=== PATIENT | male | born 1955 | race Hispanic/Latino ===

== ENCOUNTER 2018-01-09 13:43 | Inpatient (IN) | payer OTHER ==
[~2018-01-09] VITALS: Ht 157.5 cm; Wt 75.5 kg
[2018-01-09] MEDS ORDERED: ONDANSETRON HCL INJ 2 MG/ML VIAL IV STA (14:03)
[2018-01-09] MEDS ORDERED: PANTOPRAZOLE 40 MG 10ML VIAL IV STA (14:03)
[2018-01-09] MEDS ORDERED: ACETAMINOPHEN 1000 MG/100 ML IV STA (14:04)
[2018-01-09] MEDS ORDERED: SODIUM CHLORIDE 0.9% 1000ML 1,000 ML IV ONE (14:15)
[2018-01-09 14:17] LABS: BASOPHILS % 0.2 % (0.0-1.0); EOSINOPHILS # (AUTO) 0.1 (0.0-0.4); EOSINOPHILS % 1.2 % (0.0-6.0); HEMATOCRIT 42.2 % (38.2-49.6); HEMOGLOBIN 13.9 g/dL (14.0-18.0); LYMPHOCYTES # (AUTO) 0.5 (1.0-3.2); LYMPHOCYTES % 10.7 % (18.0-39.1); MEAN CORPUSCULAR HEMOGLOBIN 27.3 pg (28-32); MEAN CORPUSCULAR HGB CONC 32.9 g/dL (31-35); MEAN CORPUSCULAR VOLUME 82.7 fL (81-99); MONOCYTES % 0.2 % (4.4-11.3); NEUTROPHILS # (AUTO) 3.8 (2.1-6.9); NEUTROPHILS % 87.5 % (38.7-80.0); PLATELET COUNT 175 x10e3/uL (140-360); RED CELL DISTRIBUTION WIDTH 12.6 % (11.7-14.4)
[2018-01-09 14:24] LABS: INR 1.07; PROTHROMBIN TIME 13.1 seconds (11.9-14.5)
[2018-01-09 14:25] LABS: PARTIAL THROMBOPLASTIN TIME 26.8 seconds (23.8-35.5)
[2018-01-09 14:35] LABS: ALANINE AMINOTRANSFERASE 16 IU/L (0-55); ALBUMIN 4.1 g/dL (3.5-5.0); ALBUMIN/GLOBULIN RATIO 1.1 (0.8-2.0); ALKALINE PHOSPHATASE 77 IU/L (40-150); ANION GAP 15.9 mmol/L (8-16); BLOOD UREA NITROGEN 20 mg/dL (7-26); BUN/CREATININE RATIO 18 (6-25); CALCIUM 9.6 mg/dL (8.4-10.2); CARBON DIOXIDE 24 mmol/L (22-29); CHLORIDE 101 mmol/L (98-107); CREATINE KINASE 92 IU/L (30-200); CREATININE, SERUM 1.09 mg/dL (0.72-1.25); EST GLOMERULAR FILTRATION RATE > 60 ML/MIN (60-); GLUCOSE 279 mg/dL (74-118); MAGNESIUM 1.3 MG/DL (1.3-2.1); POTASSIUM 3.9 mmol/L (3.5-5.1); SODIUM 137 mmol/L (136-145)
[2018-01-09 15:00] LABS: CLARITY,URINE SL CLOUDY (CLEAR)
[2018-01-09 15:01] LABS: BILIRUBIN,URINE NEGATIVE (NEGATIVE); COLOR,URINE STRAW (YELLOW); KETONES,URINE NEGATIVE (NEGATIVE); LEUKOCYTE ESTERASE ,URINE TRACE (NEGATIVE); NITRITE,URINE POSITIVE (NEGATIVE); PROTEIN,URINE DIPSTICK 2+ (NEGATIVE); URINE UROBILINOGEN 0.2 mg/dL (0.2 - 1)
[2018-01-09] MEDS ORDERED: IBUPROFEN 600 MG TAB PO STA (15:06)
[2018-01-09] MEDS ORDERED: SODIUM CHLORIDE 0.9% 1000ML 1,000 ML IV STA (15:06)
[2018-01-09] MEDS ORDERED: MEROPENEM 1GRAM 1 GM in SODIUM CHLORIDE 0.9% 100 ML 100 ML IV SCH (15:15)
[2018-01-09 15:24] LABS: BACTERIA,URINE MANY /HPF; RBC,URINE >50 /HPF (0-5)
[2018-01-09] MEDS ORDERED: ONDANSETRON HCL INJ 2 MG/ML VIAL IV PRN (15:30)
[2018-01-09] MEDS ORDERED: DEXTROSE 50% SYRINGE 50 ML IV PRN (15:30)
[2018-01-09] MEDS ORDERED: MORPHINE SULFATE 2 MG/ML SYR IV PRN (15:30)
[2018-01-09] MEDS: MEROPENEM 1 GM VIAL IV SCH ×2 (15:32→22:12)
[2018-01-09] MEDS: INSULIN REGULAR, HUMAN 100 UNIT/1 ML 3ML VIAL SQ SCH ×2 (16:30→21:00)
[2018-01-09] MEDS ORDERED: ASPIR 8181 MG PO (17:06)
[2018-01-09] MEDS ORDERED: CLOPIDOGREL75 MG PO (17:09)
[2018-01-09] MEDS: SODIUM CHLORIDE 0.9% 1000ML 1,000 ML IV SCH (17:15)
--- NOTE | 2018-01-09 17:19 | Diagnostic Imaging Report ---
EXAMINATION: CHEST SINGLE (PORTABLE) INDICATION: \S\FEVER \S\[id number] \S\1630 COMPARISON: None FINDINGS: AP view TUBES and LINES: None. LUNGS: Low lung volumes. Patchy airspace opacities in both lung bases. No pulmonary edema. PLEURA: No pleural effusion or pneumothorax. HEART AND MEDIASTINUM: The cardiomediastinal silhouette is unremarkable.. BONES AND SOFT TISSUES: No acute osseous lesion. Soft tissues are unremarkable. UPPER ABDOMEN: No free air under the diaphragm. IMPRESSION: Bibasilar patchy airspace opacities may relate to atypical infection in this patient with fever. Recommend follow-up chest radiograph in 4-6 weeks. Signed by: Dr. Alexia Barlow M.D. on 01/09/2018 5:15 PM
[2018-01-09 17:55] VITALS: BP 103/62
[2018-01-09 18:01] LABS: EOSINOPHILS % (MANUAL) 1 % (0-7); LYMPHOCYTES % (MANUAL) 14 % (19-48); METAMYELOCYTES % (MANUAL) 2 % (0-0); NEUTROPHILS % (MANUAL) 83 % (40-74); PLATELET ESTIMATE ADEQUATE; PLATELET MORPHOLOGY COMMENT NORMAL; RBC MORPHOLOGY COMMENT NORMAL
[2018-01-09] MEDS ORDERED: GABAPENTIN300 MG PO (18:18)
[2018-01-09] MEDS ORDERED: CIPRO500 MG PO (18:18)
[2018-01-09] MEDS ORDERED: ULTRAM 50MG50 MG PO (18:18)
[2018-01-09] MEDS ORDERED: TAMSULOSIN HCL0.4 MG PO (18:18)
[2018-01-09] MEDS ORDERED: GEMFIBROZIL600 MG PO (18:18)
[2018-01-09] MEDS ORDERED: METFORMIN HCL500 MG PO (18:18)
[2018-01-09] MEDS ORDERED: GLIPIZIDE5 MG PO (18:18)
[2018-01-09] MEDS ORDERED: LEVAQUIN500 MG PO (18:18)
[2018-01-09] MEDS ORDERED: ATENOLOL50 MG PO (18:18)
[2018-01-09 19:30] VITALS: BP 118/56
[2018-01-09 20:00] VITALS: BP 118/56
[2018-01-10] VITALS: BP 122/59
[2018-01-10 00:30] LABS: CREATINE KINASE MB 1.4 ng/mL (0-5.0)
[2018-01-10] MEDS: SODIUM CHLORIDE 0.9% 1000ML 1,000 ML IV SCH ×3 (02:55→13:21)
[2018-01-10 04:45] LABS: BASOPHILS % 0.2 % (0.0-1.0); EOSINOPHILS % 0.2 % (0.0-6.0); HEMATOCRIT 35.7 % (38.2-49.6); HEMOGLOBIN 11.8 g/dL (14.0-18.0); LYMPHOCYTES # (AUTO) 0.4 (1.0-3.2); LYMPHOCYTES % 2.5 % (18.0-39.1); MEAN CORPUSCULAR HEMOGLOBIN 27.3 pg (28-32); MEAN CORPUSCULAR HGB CONC 33.1 g/dL (31-35); MEAN CORPUSCULAR VOLUME 82.4 fL (81-99); MONOCYTES # (AUTO) 0.6 (0.2-0.8); MONOCYTES % 3.9 % (4.4-11.3); NEUTROPHILS # (AUTO) 13.5 (2.1-6.9); NEUTROPHILS % 92.7 % (38.7-80.0); PLATELET COUNT 163 x10e3/uL (140-360); RED BLOOD COUNT 4.33 x10e6/uL (4.3-5.7); RED CELL DISTRIBUTION WIDTH 13.1 % (11.7-14.4)
[2018-01-10 05:15] LABS: CREATINE KINASE MB 1.7 ng/mL (0-5.0)
[2018-01-10 05:30] LABS: ALANINE AMINOTRANSFERASE 15 IU/L (0-55); ALBUMIN 3.1 g/dL (3.5-5.0); ALBUMIN/GLOBULIN RATIO 1.1 (0.8-2.0); ALKALINE PHOSPHATASE 45 IU/L (40-150); ANION GAP 14.1 mmol/L (8-16); BLOOD UREA NITROGEN 14 mg/dL (7-26); BUN/CREATININE RATIO 16 (6-25); CALCIUM 8.2 mg/dL (8.4-10.2); CARBON DIOXIDE 21 mmol/L (22-29); CHLORIDE 106 mmol/L (98-107); EST GLOMERULAR FILTRATION RATE > 60 ML/MIN (60-); GLUCOSE 181 mg/dL (74-118); POTASSIUM 4.1 mmol/L (3.5-5.1); SODIUM 137 mmol/L (136-145)
[2018-01-10] MEDS: MEROPENEM 1 GM VIAL IV SCH ×3 (06:02→22:10)
[2018-01-10 06:48] LABS: BAND NEUTROPHILS % (MANUAL) 19 %; LYMPHOCYTES % (MANUAL) 1 % (19-48); MONOCYTES % (MANUAL) 6 % (3.4-9.0); NEUTROPHILS % (MANUAL) 74 % (40-74); PLATELET ESTIMATE ADEQUATE; PLATELET MORPHOLOGY COMMENT NORMAL; RBC MORPHOLOGY COMMENT NORMAL
[2018-01-10 08:00] VITALS: BP 137/64
[2018-01-10] MEDS: INSULIN REGULAR, HUMAN 100 UNIT/1 ML 3ML VIAL SQ SCH ×4 (09:25→21:42)
[2018-01-10] MEDS ORDERED: ACETAMINOPHEN 325 MG TAB PO PRN (10:00)
[2018-01-10] MEDS ORDERED: TRAMADOL HCL 50 MG TAB PO PRN (10:00)
[2018-01-10] MEDS ORDERED: HYDRALAZINE HCL 25 MG TAB PO PRN (10:00)
[2018-01-10 12:00] VITALS: BP 129/67
--- NOTE | 2018-01-10 14:24 | Diagnostic Imaging Report ---
EXAM: CT Chest, Abdomen and Pelvis WITH contrast INDICATION: History of prostate biopsy. Fever. COMPARISON: None. TECHNIQUE: Chest, abdomen and pelvis were scanned utilizing a multidetector helical scanner from the lung apex to the pubic symphysis after administration of IV contrast. Coronal and sagittal reformations were obtained. Routine protocol was performed. Scan was performed when during portal venous phase. IV CONTRAST: 100 mL of Isovue 370 ORAL CONTRAST: Water COMPLICATIONS: None RADIATION DOSE: Total DLP: 883.56 mGy*cm Estimated effective dose: (DLP x 0.015 x size factor) mSv CTDIvol has been reviewed. It is below the limits set by the Radiation Protocol Committee (RPC). FINDINGS: LINES and TUBES: None. LUNGS AND AIRWAYS: * 4.4 mm nodule in the left upper lobe (series 4, image 25). * 3.6 mm nodule in the left upper lobe (series 4 image 32). * 4.8 mm nodule in the right middle lobe (series 4, image 66) * Calcified granuloma in the right upper lobe. There is bibasilar atelectasis. Airways are normal. PLEURA: The pleural spaces are clear. HEART AND MEDIASTINUM: The thyroid gland is normal. No mediastinal, hilar or axillary lymphadenopathy. The heart is normal in size. There is no pericardial effusion. There are significant atherosclerotic calcifications in the coronary arteries. HEPATOBILIARY: The liver is diffuse hypodense compared to the spleen, consistent with diffuse hepatic diffuse hepatic steatosis. No focal hepatic lesions. No biliary ductal dilation. GALLBLADDER: No radio-opaque stones or sludge. No wall thickening. SPLEEN: No splenomegaly. PANCREAS: No focal masses or ductal dilatation. ADRENALS: No adrenal nodules KIDNEYS/URETERS: Kidneys enhance symmetrically. No hydronephrosis. No cystic or solid mass lesions. No stones. GI TRACT: No abnormal distention, wall thickening, or evidence of bowel obstruction. Appendix is normal. PELVIC ORGANS/BLADDER: Prostate measures 5.6 cm in transverse dimension. Mild surrounding inflammatory changes related to recent biopsy. Mild presacral edema related to the inflammatory changes surrounding the prostate. LYMPH NODES: No lymphadenopathy. VESSELS: Unremarkable. PERITONEUM / RETROPERITONEUM: No free air or fluid. BONES: Unremarkable. SOFT TISSUES: Unremarkable. IMPRESSION: 1. Mild prostate enlargement with surrounding inflammatory changes related to recent prostate biopsy. Superimposed infection cannot be excluded. There is additional presacral edema, likely related to the prostate biopsy. 2. Diffuse hepatic steatosis. 3. Several nonspecific small pulmonary nodules. 4. Dependent atelectasis. Signed by: Dr. Deuce Edward M.D. on 01/10/2018 2:20 PM
[2018-01-10 16:00] VITALS: BP 139/78
[2018-01-10] MEDS: ATENOLOL 50 MG TAB PO SCH (17:23)
[2018-01-10] MEDS: GEMFIBROZIL 600 MG TAB PO SCH (17:23)
[2018-01-10] MEDS ORDERED: IOPAMIDOL 370 MG/ML 200 ML INFUS..BTL INJ ONE (18:05)
[2018-01-10] MEDS ORDERED: SODIUM CHLORIDE 0.9% 50ML 50 ML ONE (18:05)
[2018-01-10 20:00] VITALS: BP 120/67
[2018-01-10] MEDS: TAMSULOSIN HCL 0.4 MG CAP PO SCH (21:41)
[2018-01-11] VITALS (7 sets, daily range): BP systolic 114–168; BP diastolic 59–81
[2018-01-11] MEDS: MEROPENEM 1 GM VIAL IV SCH (06:05)
[2018-01-11 06:26] LABS: BASOPHILS % 0.3 % (0.0-1.0); EOSINOPHILS # (AUTO) 0.1 (0.0-0.4); HEMATOCRIT 36.7 % (38.2-49.6); LYMPHOCYTES # (AUTO) 0.6 (1.0-3.2); LYMPHOCYTES % 9.1 % (18.0-39.1); MEAN CORPUSCULAR HGB CONC 32.7 g/dL (31-35); MEAN CORPUSCULAR VOLUME 82.7 fL (81-99); MONOCYTES # (AUTO) 0.5 (0.2-0.8); MONOCYTES % 7.4 % (4.4-11.3); NEUTROPHILS # (AUTO) 5.8 (2.1-6.9); NEUTROPHILS % 81.6 % (38.7-80.0); PLATELET COUNT 143 x10e3/uL (140-360); RED BLOOD COUNT 4.44 x10e6/uL (4.3-5.7); RED CELL DISTRIBUTION WIDTH 13.2 % (11.7-14.4)
[2018-01-11 06:42] LABS: ANION GAP 11.5 mmol/L (8-16); BLOOD UREA NITROGEN 11 mg/dL (7-26); BUN/CREATININE RATIO 13 (6-25); CALCIUM 8.9 mg/dL (8.4-10.2); CARBON DIOXIDE 21 mmol/L (22-29); CHLORIDE 105 mmol/L (98-107); CREATININE, SERUM 0.84 mg/dL (0.72-1.25); EST GLOMERULAR FILTRATION RATE > 60 ML/MIN (60-); GLUCOSE 178 mg/dL (74-118); POTASSIUM 3.5 mmol/L (3.5-5.1); SODIUM 134 mmol/L (136-145)
[2018-01-11] MEDS: INSULIN REGULAR, HUMAN 100 UNIT/1 ML 3ML VIAL SQ SCH ×4 (07:50→21:30)
[2018-01-11] MEDS: GLIPIZIDE 5 MG TAB PO SCH (08:39)
[2018-01-11] MEDS: GEMFIBROZIL 600 MG TAB PO SCH ×2 (08:40→16:22)
[2018-01-11] MEDS: ATENOLOL 50 MG TAB PO SCH ×2 (08:40→17:30)
[2018-01-11] MEDS: GABAPENTIN 300 MG CAP PO SCH (08:40)
[2018-01-11] MEDS ORDERED: TAMSULOSIN HCL 0.4 MG CAP PO SCH (09:00)
[2018-01-11] MEDS ORDERED: ASPIRIN 81 MG CHEW TAB PO SCH (09:00)
[2018-01-11] MEDS ORDERED: CLOPIDOGREL BISULFATE 75 MG TAB PO SCH (09:00)
--- NOTE | 2018-01-11 09:55 | Diagnostic Imaging Report ---
EXAMINATION: CHEST XRAY LINE PLACEMENT COMPARISON: CT chest 01/10/2018, chest x-ray 01/09/2018 INDICATION: PICC line placement DISCUSSION: Frontal view of the chest obtained at 0913 hours. HEART AND MEDIASTINUM: The cardiomediastinal silhouette is unremarkable. LINES: Right PICC line terminates in the SVC. LUNGS: The lungs are better inflated with improved bibasilar atelectasis. No pneumonia or pulmonary edema. PLEURA: No pleural effusion or pneumothorax. BONES AND SOFT TISSUES: No focal osseous lesion. The soft tissues are normal. IMPRESSION: Right PICC line terminates in the SVC without pneumothorax. No new cardiopulmonary findings. Signed by: Dr. Michael Lovett MD on 01/11/2018 9:52 AM
[2018-01-11 10:03] LABS: BAND NEUTROPHILS % (MANUAL) 23 %; LYMPHOCYTES % (MANUAL) 13 % (19-48); MONOCYTES % (MANUAL) 4 % (3.4-9.0); NEUTROPHILS % (MANUAL) 60 % (40-74); PLATELET ESTIMATE ADEQUATE; PLATELET MORPHOLOGY COMMENT NORMAL; RBC MORPHOLOGY COMMENT NORMAL
[2018-01-11] MEDS: SODIUM CHLORIDE 0.9% 1000ML 1,000 ML IV SCH (11:20)
[2018-01-11] MEDS: PIPER-TAZ 3.375 GM 50 ML IV SCH ×2 (14:16→21:31)
--- NOTE | 2018-01-11 17:32 | Consultation ---
DATE OF CONSULTATION: REASON FOR CONSULTATION: UTI with multidrug resistant. HISTORY OF PRESENT ILLNESS: This patient, who is a 62-year-old male, comes into the hospital with fever and chills, urgency, and frequency. The patient was admitted. His urine culture is showing E. coli, blood culture is showing E. coli, it was confirmed as ESBL, sensitive only to Invanz and meropenem. Patient is currently lying in bed. The plan is for him to be discharged home soon. Infectious disease was asked to see to help with IV antibiotic. Patient is currently lying in bed, has no complaints. REVIEW OF SYSTEMS HEENT: Negative. PULMONARY: Negative. CARDIAC: Negative. PHYSICAL EXAMINATION GENERAL: He is alert and oriented, does not seem to be in acute distress. VITAL SIGNS: Stable, currently afebrile. HEENT: Does not appear icteric. NECK: Supple. CHEST: Clear. HEART: S1 and S2. No S3, S4, or murmur. ABDOMEN: Soft. Positive bowel sounds. No tenderness. EXTREMITIES: No edema. IMPRESSION: Sepsis, present on admission, Escherichia coli multidrug-resistant. Agree with 14 days of meropenem or Invanz. PICC line has already been inserted. We will see if I can do IV antibiotic at the house. I am going to have my office work on it. In the meantime, PICC line has been inserted. Discussed with the family. We will follow with you. Job#: [id number] BRYAN
[2018-01-11] MEDS: TAMSULOSIN HCL 0.4 MG CAP PO SCH (21:30)
[2018-01-12] VITALS (8 sets, daily range): BP systolic 135–170; BP diastolic 68–89
[2018-01-12] MEDS: PIPER-TAZ 3.375 GM 50 ML IV SCH (06:00)
[2018-01-12 06:03] LABS: BASOPHILS % 0.2 % (0.0-1.0); EOSINOPHILS # (AUTO) 0.1 (0.0-0.4); EOSINOPHILS % 2.6 % (0.0-6.0); HEMATOCRIT 35.8 % (38.2-49.6); HEMOGLOBIN 11.8 g/dL (14.0-18.0); LYMPHOCYTES # (AUTO) 0.9 (1.0-3.2); LYMPHOCYTES % 19.8 % (18.0-39.1); MEAN CORPUSCULAR HEMOGLOBIN 27.3 pg (28-32); MEAN CORPUSCULAR VOLUME 82.7 fL (81-99); MONOCYTES # (AUTO) 0.4 (0.2-0.8); MONOCYTES % 9.8 % (4.4-11.3); NEUTROPHILS # (AUTO) 2.9 (2.1-6.9); NEUTROPHILS % 67.1 % (38.7-80.0); PLATELET COUNT 157 x10e3/uL (140-360); RED BLOOD COUNT 4.33 x10e6/uL (4.3-5.7)
[2018-01-12 06:08] LABS: ANION GAP 12.6 mmol/L (8-16); BLOOD UREA NITROGEN 11 mg/dL (7-26); BUN/CREATININE RATIO 14 (6-25); CARBON DIOXIDE 22 mmol/L (22-29); CHLORIDE 109 mmol/L (98-107); CREATININE, SERUM 0.79 mg/dL (0.72-1.25); EST GLOMERULAR FILTRATION RATE > 60 ML/MIN (60-); GLUCOSE 131 mg/dL (74-118); POTASSIUM 3.6 mmol/L (3.5-5.1); SODIUM 140 mmol/L (136-145)
[2018-01-12] MEDS: SODIUM CHLORIDE 0.9% 1000ML 1,000 ML IV SCH (07:16)
[2018-01-12 07:55] LABS: BAND NEUTROPHILS % (MANUAL) 4 %; EOSINOPHILS % (MANUAL) 2 % (0-7); LYMPHOCYTES % (MANUAL) 25 % (19-48); MONOCYTES % (MANUAL) 7 % (3.4-9.0); NEUTROPHILS % (MANUAL) 62 % (40-74)
[2018-01-12 07:57] LABS: HYPOCHROMASIA SLIGHT
[2018-01-12 07:58] LABS: ANISOCYTOSIS SLIGHT; PLATELET ESTIMATE ADEQUATE; PLATELET MORPHOLOGY COMMENT NORMAL; RBC MORPHOLOGY COMMENT NORMAL
[2018-01-12] MEDS: GLIPIZIDE 5 MG TAB PO SCH (08:23)
[2018-01-12] MEDS: GEMFIBROZIL 600 MG TAB PO SCH ×2 (08:23→17:00)
[2018-01-12] MEDS: GABAPENTIN 300 MG CAP PO SCH (08:23)
[2018-01-12] MEDS: ATENOLOL 50 MG TAB PO SCH ×2 (08:24→17:00)
[2018-01-12] MEDS: INSULIN REGULAR, HUMAN 100 UNIT/1 ML 3ML VIAL SQ SCH ×3 (08:25→16:58)
[2018-01-12] MEDS ORDERED: MORPHINE SULFATE INJ 4 MG/ML INJ IV PRN (13:00)
[2018-01-12] MEDS ORDERED: MEROPENEM 500MG 500 MG in SODIUM CHLORIDE 0.9% 50ML 50 ML IV SCH (14:00)
[2018-01-12] MEDS ORDERED: MEROPENEM 500 MG VIAL IV SCH (14:00)
== END 2018-01-12 22:42 | disposition home or self-care (01) | DRG 872 ==
LOC: ER 13:43 → ERHOLD 15:33 → MED/SURG3 17:11
PROVIDERS: ADMIT Internal Medicine; ATTEND Internal Medicine
PROC: 02HV33Z Insertion of Infusion Device into Superior Vena Cava, Percutaneous Approach (ICD-10-PCS; principal; 2018-01-11)
DX: A41.51 Sepsis due to Escherichia coli [E. coli] (principal); N30.01 Acute cystitis with hematuria; E87.1 Hypo-osmolality and hyponatremia; Z16.12 Extended spectrum beta lactamase (ESBL) resistance; I10 Essential (primary) hypertension; E11.9 Type 2 diabetes mellitus without complications; N40.0 Benign prostatic hyperplasia without lower urinary tract symptoms; Z83.3 Family history of diabetes mellitus; Z82.49 Family history of ischemic heart disease and other diseases of the circulatory system; I25.10 Atherosclerotic heart disease of native coronary artery without angina pectoris; E78.5 Hyperlipidemia, unspecified; M79.1 Myalgia; N41.9 Inflammatory disease of prostate, unspecified; D64.9 Anemia, unspecified; E87.5 Hyperkalemia
CPT/HCPCS: 36415; 36569; 71045; 71260; 74177; 80048; 80053; 81001; 82550; 82553; 82948; 83605; 83735; 84484; 85025; 85610; 85730; 87040; 87071; 87086; 87186; 87205; 96361; 96372; 96376; 99284; J2185; J2270; J2405; J2543; J7030; Q9967

== ENCOUNTER 2018-03-11 05:34 | Inpatient (IN) | payer OTHER ==
[2018-03-09 17:35] LABS: BASOPHILS # (AUTO) 0.1 (0.0-0.1); BASOPHILS % 0.8 % (0.0-1.0); EOSINOPHILS # (AUTO) 0.3 (0.0-0.4); EOSINOPHILS % 5.1 % (0.0-6.0); HEMATOCRIT 37.2 % (38.2-49.6); HEMOGLOBIN 12.3 g/dL (14.0-18.0); LYMPHOCYTES # (AUTO) 1.3 (1.0-3.2); LYMPHOCYTES % 20.3 % (18.0-39.1); MEAN CORPUSCULAR HGB CONC 33.1 g/dL (31-35); MEAN CORPUSCULAR VOLUME 81.6 fL (81-99); MONOCYTES # (AUTO) 0.6 (0.2-0.8); NEUTROPHILS % 63.6 % (38.7-80.0); PLATELET COUNT 186 x10e3/uL (140-360); RED BLOOD COUNT 4.56 x10e6/uL (4.3-5.7); RED CELL DISTRIBUTION WIDTH 13.6 % (11.7-14.4)
[2018-03-09 17:48] LABS: ANION GAP 17.5 mmol/L (8-16); BLOOD UREA NITROGEN 18 mg/dL (7-26); BUN/CREATININE RATIO 18 (6-25); CALCIUM 8.9 mg/dL (8.4-10.2); CARBON DIOXIDE 22 mmol/L (22-29); CHLORIDE 103 mmol/L (98-107); CREATININE, SERUM 1.02 mg/dL (0.72-1.25); EST GLOMERULAR FILTRATION RATE > 60 ML/MIN (60-); GLUCOSE 399 mg/dL (74-118); POTASSIUM 4.5 mmol/L (3.5-5.1); SODIUM 138 mmol/L (136-145)
[~2018-03-11] VITALS: Ht 157.5 cm; Wt 77.6 kg
[~2018-03-11 05:34] MED LIST: ASPIR 8181 MG PO; ATENOLOL50 MG PO; CIPRO500 MG PO; CLOPIDOGREL75 MG PO; FINASTERIDE5 MG PO; GABAPENTIN300 MG PO; GEMFIBROZIL600 MG PO; GLIPIZIDE5 MG PO; LEVAQUIN500 MG PO; MEROPENEM1 GM IV; METFORMIN HCL500 MG PO; TAMSULOSIN HCL0.4 MG PO; TRADJENTA5 MG PO; ULTRAM 50MG50 MG PO
--- OUTSIDE RECORDS SUMMARY | 2018-03-11 05:37 | XMS REPORT ---
Author Author [facility] Address Unknown Phone Unavailable Care Team Providers Care Nip Wrapper Name Role Phone DIANA KIRBY Unavailable Unavailable Problems This patient has no known problems. Allergies, Adverse Reactions, Alerts This patient has no known allergies or adverse reactions. Medications This patient has no known medications. Results Test Description Test Time Test Comments Text Results Atomic Results Result Comments CHEST XRAY LINE PLACEMENT 2018-01-11 09:50:00 [place] [address] Patient Name: ANTONIO VALDERRAMA MR #: [id number] : 1955 Age/Sex: 62/M Req #: [id number] Adm Physician: DIANA KIRBY MD Ordered by: CINDY STANLEY MD Report #: [id number] Location: [facility] Room/Bed: [facility] Procedure: [id number] DX/CHEST XRAY LINE PLACEMENT Exam Date: 01/11/18 Exam Time: 0845 REPORT STATUS: Signed EXAMINATION: CHEST XRAY LINE PLACEMENT COMPARISON: CT chest 01/10/2018, chest x-ray 01/09/2018 INDICATION: PICC line placement DISCUSSION: Frontal view of the chest obtained at 0913 hours. HEART AND MEDIASTINUM: The cardiomediastinal silhouette is unremarkable. LINES: Right PICC line terminates in the SVC. LUNGS: The lungs are better inflated with improved bibasilar atelectasis. No pneumonia or pulmonary edema. PLEURA: No pleural effusion or pneumothorax. BONES AND SOFT TISSUES: No focal osseous lesion. The soft tissues are normal. IMPRESSION: Right PICC line terminates in the SVC without pneumothorax. No new cardiopulmonary findings. Signed by: Dr. Jeanne Lovett MD on 01/11/2018 9:52 AM Dictated By: JEANNE LOVETT MD 1 Transcribed By: LORENZO on 01/11/18951 COPY TO: CINDY STANLEY MD CT CHEST W 2018-01-10 14:01:00 [place] [address] Patient Name: ANTONIO VALDERRAMA MR #: [id number] : 1955 Age/Sex: 62/M Req #: [id number] Adm Physician: DIANA KIRBY MD Ordered by: DIANA KIRBY MD Report #: [id number] Location: [facility] Room/Bed: [facility] Procedure: [id number] CT/CT CHEST W Exam Date: 01/10/18 Exam Time: 1310 REPORT STATUS: Signed EXAM: CT Chest, Abdomen and Pelvis WITH contrast INDICATION: History of prostate biopsy. Fever. COMPARISON: None. TECHNIQUE: Chest, abdomen and pelvis were scanned utilizing a multidetector helical scanner from the lung apex to the pubic symphysis after administration of IV contrast. Coronal and sagittal reformations were obtained. Routine protocol was performed. Scan was performed when during portal venous phase. IV CONTRAST: 100 mL of Isovue 370 ORAL CONTRAST: Water COMPLICATIONS: None RADIATION DOSE: Total DLP: 883.56 mGy*cm Estimated effective dose: (DLP x 0.015 x size factor) mSv CTDIvol has been reviewed. It is below the limits set by the Radiation Protocol Committee (RPC). FINDINGS: LINES and TUBES: None. LUNGS AND AIRWAYS: * 4.4 mm nodule in the left upper lobe (series 4, image 25). * 3.6 mm nodule in the left upper lobe (series 4 image 32). * 4.8 mm nodule in the right middle lobe (series 4, image 66) * Calcified granuloma in the right upper lobe. There is bibasilar atelectasis. Airways are normal. PLEURA: The pleural spaces are clear. HEART AND MEDIASTINUM: The thyroid gland is normal. No mediastinal, hilar or axillary lymphadenopathy. The heart is normal in size. There is no pericardial effusion. There are significant atherosclerotic calcifications in the coronary arteries. HEPATOBILIARY: The liver is diffuse hypodense compared to the spleen, consistent with diffuse hepatic diffuse hepatic steatosis. No focal hepatic lesions. No biliary ductal dilation. GALLBLADDER: No radio-opaque stones or sludge. No wall thickening. SPLEEN: No splenomegaly. PANCREAS: No focal masses or ductal dilatation. ADRENALS: No adrenal nodules KIDNEYS/URETERS: Kidneys enhance symmetrically. No hydronephrosis. No cystic or solid mass lesions. No stones. GI TRACT: No abnormal distention, wall thickening, or evidence of bowel obstruction. Appendix is normal. PELVIC ORGANS/BLADDER: Prostate measures 5.6 cm in transverse dimension. Mild surrounding inflammatory changes related to recent biopsy. Mild presacral edema related to the inflammatory changes surrounding the prostate. LYMPH NODES: No lymphadenopathy. VESSELS: Unremarkable. PERITONEUM / RETROPERITONEUM: No free air or fluid. BONES: Unremarkable. SOFT TISSUES: Unremarkable. IMPRESSION: 1. Mild prostate enlargement with surrounding inflammatory changes related to recent prostate biopsy. Superimposed infection cannot be excluded. There is additional presacral edema, likely related to the prostate biopsy. 2. Diffuse hepatic steatosis. 3. Several nonspecific small pulmonary nodules. 4. Dependent atelectasis. Signed by: Dr. Dennise Heaton M.D. on 01/10/2018 2:20 PM Dictated By: DENNISE HEATON MD 1423 Transcribed By: LORENZO on 01/10/18 1421 COPY TO: DIANA KIRBY MD CT ABDOMEN/PELVIS W 2018-01-10 14:01:00 [facility] [place] [address] Patient Name: ANTONIO VALDERRAMA MR #: [id number] : 1955 Age/Sex: 62/M Req #: [id number] Adm Physician: DIANA KIRBY MD Ordered by: DIANA KIRBY MD Report #: [id number] Location: [facility] Room/Bed: [facility] Procedure: [id number] CT/CT ABDOMEN/PELVIS W Exam Date: 01/10/18 Exam Time: 1310 REPORT STATUS: Signed EXAM: CT Chest, Abdomen and Pelvis WITH contrast INDICATION: History of prostate biopsy. Fever. COMPARISON: None. TECHNIQUE: Chest, abdomen and pelvis were scanned utilizing a multidetector helical scanner from the lung apex to the pubic symphysis after administration of IV contrast. Coronal and sagittal reformations were obtained. Routine protocol was performed. Scan was performed when during portal venous phase. IV CONTRAST: 100 mL of Isovue 370 ORAL CONTRAST: Water COMPLICATIONS: None RADIATION DOSE: Total DLP: 883.56 mGy*cm Estimated effective dose: (DLP x 0.015 x size factor) mSv CTDIvol has been reviewed. It is below the limits set by the Radiation Protocol Committee (RPC). FINDINGS: LINES and TUBES: None. LUNGS AND AIRWAYS: * 4.4 mm nodule in the left upper lobe (series 4, image 25). * 3.6 mm nodule in the left upper lobe (series 4 image 32). * 4.8 mm nodule in the right middle lobe (series 4, image 66) * Calcified granuloma in the right upper lobe. There is bibasilar atelectasis. Airways are normal. PLEURA: The pleural spaces are clear. HEART AND MEDIASTINUM: The thyroid gland is normal. No mediastinal, hilar or axillary lymphadenopathy. The heart is normal in size. There is no pericardial effusion. There are significant atherosclerotic calcifications in the coronary arteries. HEPATOBILIARY: The liver is diffuse hypodense compared to the spleen, consistent with diffuse hepatic diffuse hepatic steatosis. No focal hepatic lesions. No biliary ductal dilation. GALLBLADDER: No radio-opaque stones or sludge. No wall thickening. SPLEEN: No splenomegaly. PANCREAS: No focal masses or ductal dilatation. ADRENALS: No adrenal nodules KIDNEYS/URETERS: Kidneys enhance symmetrically. No hydronephrosis. No cystic or solid mass lesions. No stones. GI TRACT: No abnormal distention, wall thickening, or evidence of bowel obstruction. Appendix is normal. PELVIC ORGANS/BLADDER: Prostate measures 5.6 cm in transverse dimension. Mild surrounding inflammatory changes related to recent biopsy. Mild presacral edema related to the inflammatory changes surrounding the prostate. LYMPH NODES: No lymphadenopathy. VESSELS: Unremarkable. PERITONEUM / RETROPERITONEUM: No free air or fluid. BONES: Unremarkable. SOFT TISSUES: Unremarkable. IMPRESSION: 1. Mild prostate enlargement with surrounding inflammatory changes related to recent prostate biopsy. Superimposed infection cannot be excluded. There is additional presacral edema, likely related to the prostate biopsy. 2. Diffuse hepatic steatosis. 3. Several nonspecific small pulmonary nodules. 4. Dependent atelectasis. Signed by: Dr. Dennise Heaton M.D. on 01/10/2018 2:20 PM Dictated By: DENNISE HEATON MD 1420 Transcribed By: LORENZO on 01/10/18 1420 COPY TO: DIANA KIRBY MD CHEST SINGLE (PORTABLE) 2018-01-09 17:14:00 [place] [address] Patient Name: ANTONIO VALDERRAMA MR #: [id number] : 1955 Age/Sex: 62/M Req #: [id number] Adm Physician: DIANA KIRBY MD Ordered by: DARLIN AARON MD Report #: [id number] Location: [facility] Room/Bed: [facility] Procedure: [id number] DX/CHEST SINGLE (PORTABLE) Exam Date: 01/09/18 Exam Time: 1630 REPORT STATUS: Signed EXAMINATION: CHEST SINGLE (PORTABLE) INDICATION: COMPARISON: None FINDINGS: AP view TUBES and LINES: None. LUNGS: Low lung volumes. Patchy airspace opacities in both lung bases. No pulmonary edema. PLEURA: No pleural effusion or pneumothorax. HEART AND MEDIASTINUM: The cardiomediastinal silhouette is unremarkable.. BONES AND SOFT TISSUES: No acute osseous lesion. Soft tissues are unremarkable. UPPER ABDOMEN: No free air under the diaphragm. IMPRESSION: Bibasilar patchy airspace opacities may relate to atypical infection in this patient with fever. Recommend follow-up chest radiograph in 4-6 weeks. Signed by: Dr. Muriel Castellanos M.D. on 01/09/2018 5:15 PM Dictated By: MURIEL CASTELLANOS MD 14 Transcribed By: LORENZO on 01/09/181714 COPY TO: DARLIN AARON MD
[2018-03-11] MEDS ORDERED: GENTAMICIN 80MG/NS 100 ML 200 ML IV ONE (05:55)
[2018-03-11] MEDS ORDERED: CEFTRIAXONE SOD 1 GM VIAL ONE (05:55)
[2018-03-11] MEDS ORDERED: INSULIN REGULAR, HUMAN 100 UNIT/1 ML 3ML VIAL ONE ×2 (06:27→09:56)
[2018-03-11 06:44] LABS: ANION GAP 15.2 mmol/L (8-16); BLOOD UREA NITROGEN 16 mg/dL (7-26); BUN/CREATININE RATIO 18 (6-25); CARBON DIOXIDE 21 mmol/L (22-29); CHLORIDE 103 mmol/L (98-107); CREATININE, SERUM 0.88 mg/dL (0.72-1.25); EST GLOMERULAR FILTRATION RATE > 60 ML/MIN (60-); GLUCOSE 222 mg/dL (74-118); POTASSIUM 4.2 mmol/L (3.5-5.1); SODIUM 135 mmol/L (136-145)
[2018-03-11] MEDS ORDERED: IOPAMIDOL 610MG/1ML 300 MG/ML VIAL IV ONE (07:15)
[2018-03-11] MEDS ORDERED: BELLADONNA/OPIUM 60 MG SUPP PR ONE (07:15)
[2018-03-11] MEDS ORDERED: MEROPENEM 1GM 100 ML IV ONE (08:00)
[2018-03-11] MEDS ORDERED: D5.45%NS/KCL 20MEQ 1,000 ML IV SCH (11:08)
[2018-03-11] MEDS ORDERED: DIPHENHYDRAMINE HCL INJ 50 MG/ML VIAL IM PRN (11:15)
[2018-03-11] MEDS ORDERED: BELLADONNA/OPIUM 60 MG SUPP PR PRN (11:15)
[2018-03-11] MEDS ORDERED: ONDANSETRON HCL INJ 2 MG/ML VIAL IV PRN (11:15)
[2018-03-11] MEDS ORDERED: DIPHENHYDRAMINE HCL 25 MG CAP PO PRN (11:15)
[2018-03-11] MEDS: PHENAZOPYRIDINE HCL 100 MG TAB PO SCH ×2 (13:00→17:10)
[2018-03-11 14:39] VITALS: BP 127/67
[2018-03-11 14:48] VITALS: BP 127/67
[2018-03-11] MEDS ORDERED: DEXTROSE 50% SYRINGE 50 ML IV PRN (17:00)
[2018-03-11] MEDS: ACETAMINOPHEN/CODEINE 300MG - 30MG TAB PO PRN (17:10)
[2018-03-11] MEDS: DOCUSATE SODIUM 100 MG CAP PO SCH (17:10)
[2018-03-11] MEDS ORDERED: ONDANSETRON HCL INJ 2 MG/ML VIAL ONE (17:14)
[2018-03-11] MEDS ORDERED: SEVOFLURANE INHAL SOLN 250 ML PEN BTL ONE (17:14)
[2018-03-11] MEDS ORDERED: DEXAMETHASONE SOD PHOS INJ 4 MG/ML VIAL ONE (17:14)
[2018-03-11] MEDS ORDERED: NEOSTIGMINE 5 MG/5ML SYR ONE (17:14)
[2018-03-11] MEDS ORDERED: GLYCOPYRROLATE INJ 1MG/ 5 ML SYR ONE (17:14)
[2018-03-11] MEDS ORDERED: LIDOCAINE HCL 2% LOCAL INJ 5 ML SDV VIAL INJ ONE (17:14)
[2018-03-11] MEDS ORDERED: PROPOFOL IV EMULSION 10 MG/ML 20 ML VIAL ONE (17:14)
[2018-03-11] MEDS ORDERED: ROCURONIUM BROMIDE 10 MG/ML 5ML VIAL ONE (17:14)
[2018-03-11] MEDS ORDERED: FENTANYL CITRATE/PF 100MCG/2 ML INJ ONE (17:28)
[2018-03-11] MEDS ORDERED: MIDAZOLAM HCL 2 MG/2 ML VIAL ONE (17:28)
[2018-03-11] MEDS: GEMFIBROZIL 600 MG TAB PO SCH (17:55)
[2018-03-11] MEDS: ATENOLOL 50 MG TAB PO SCH (17:55)
[2018-03-11] MEDS: GLIPIZIDE 5 MG TAB PO SCH (17:55)
[2018-03-11] MEDS: SODIUM CHLORIDE 0.45% 1,000 ML IV SCH (17:55)
[2018-03-11 20:00] VITALS: BP 105/69
[2018-03-11] MEDS: MEROPENEM 1 GM VIAL IV SCH (20:54)
[2018-03-11] MEDS: INSULIN LISPRO 100 UNIT/1 ML 3ML VIAL SQ SCH (21:00)
[2018-03-11] MEDS ORDERED: MEROPENEM 1GRAM 1 GM in SODIUM CHLORIDE 0.9% 100 ML 100 ML IV SCH (21:00)
[2018-03-12] VITALS: BP 119/61
--- NOTE | 2018-03-12 00:33 | Operative Report ---
DATE OF PROCEDURE: March 11, 2018 PREOPERATIVE DIAGNOSES: 1. Obstructive benign prostatic hypertrophy. 2. Prior urinary tract infection. POSTOPERATIVE DIAGNOSES: 1. Obstructive benign prostatic hypertrophy. 2. Prior urinary tract infection. OPERATIONS PERFORMED: 1. Cystourethroscopy with bilateral ureteral catheterization and retrograde ureteropyelography (separate procedure performed for the urinary tract infections). 2. Interpretation of retrograde ureteropyelography. 3. Supervision of fluoroscopy, no radiologist present. 4. Cystourethroscopy with transurethral resection of the prostate utilizing the plasma band electrode. ANESTHESIA: General. COMPLICATIONS: None. CLINICAL SUMMARY: Elpidio Lopez is 62-year-old man with enlarged prostate larger than 80 g. He underwent prostate biopsies, which resulted in complicated infection that required intravenous antibiotics. The patient has obstructive BPH with symptomatology. His prostate biopsies were negative for carcinoma. He is brought to the operating room for the above procedures. He is aware of the risks of bleeding, infection, injury to adjacent structures, incontinence, impotence, retrograde ejaculation, need for additional procedures, and elected to proceed. OPERATIVE PROCEDURE IN DETAIL: Informed consent was verified. Elpidio Lopez was properly identified, taken to the operating room, and placed on the cystoscopy table in supine position. Anesthesia was uneventfully begun. The patient was then carefully and gently repositioned in dorsal lithotomy position with all pressure points well padded. His genitalia were prepared and draped in usual sterile fashion. The 22.5-[place] cystoscope sheath with the visual obturator in place was atraumatically inserted into the patient's urethra. It was guided down the unremarkable urethra, through the normal sphincteric region, through the prostate bed, which was significant for trilobar prostatic hypertrophy with kissing lateral lobes and a prominent median lobe that was intravesical. Panendoscopy of the urinary bladder revealed heavy trabeculations, but no tumors, no stones, and no true diverticula. Normally positioned and configured ureteral orifices were identified. An 8-[place] catheter was used to cannulate each ureter, and retrograde ureteral pyelograms were performed. Interpretation of retrograde ureteropyelography: Contrast was instilled in retrograde fashion bilaterally. There were no tumors, no stones, no diverticula. Unobstructed drainage was observed bilaterally fluoroscopically. Some degree of J-hooking was noted. There also seemed to be some delay of flow from the ureters into the bladder where the ureters entered the bladder wall. The resectoscope sheath was atraumatically placed, and then we utilized the plasma band electrode to perform transurethral resection of the prostate. First, we eliminated the median lobe taking care to stay away from injuring the very close ureteral orifices. We then worked on both lateral lobes from the bladder neck to, but never past the verumontanum. Hemostasis was obtained with pinpoint electrocautery. All chips were evacuated. This was verified endoscopically. The patient was then uneventfully reversed from anesthesia and taken to recovery room in stable condition. There were no complications to the procedure. He tolerated the procedure well. Explicit post instructions were given, and will proceed with routine postoperative care. Will admit the patient for intravenous antibiotics, involve the infectious diseases doctor, and of course monitor the patient closely postoperatively. Job#: [id number]
[2018-03-12 04:00] VITALS: BP 131/71
[2018-03-12] MEDS: SODIUM CHLORIDE 0.45% 1,000 ML IV SCH ×3 (05:23→23:54)
[2018-03-12 05:36] LABS: BASOPHILS % 0.6 % (0.0-1.0); EOSINOPHILS # (AUTO) 0.1 (0.0-0.4); EOSINOPHILS % 0.8 % (0.0-6.0); HEMATOCRIT 31.2 % (38.2-49.6); HEMOGLOBIN 10.5 g/dL (14.0-18.0); LYMPHOCYTES # (AUTO) 1.2 (1.0-3.2); MEAN CORPUSCULAR HEMOGLOBIN 27.3 pg (28-32); MEAN CORPUSCULAR HGB CONC 33.7 g/dL (31-35); MONOCYTES # (AUTO) 0.7 (0.2-0.8); MONOCYTES % 9.5 % (4.4-11.3); NEUTROPHILS # (AUTO) 5.3 (2.1-6.9); NEUTROPHILS % 72.7 % (38.7-80.0); PLATELET COUNT 188 x10e3/uL (140-360); RED BLOOD COUNT 3.85 x10e6/uL (4.3-5.7); RED CELL DISTRIBUTION WIDTH 13.4 % (11.7-14.4)
[2018-03-12 06:06] LABS: ANION GAP 12.9 mmol/L (8-16); BLOOD UREA NITROGEN 17 mg/dL (7-26); BUN/CREATININE RATIO 20 (6-25); CALCIUM 7.9 mg/dL (8.4-10.2); CARBON DIOXIDE 21 mmol/L (22-29); CHLORIDE 101 mmol/L (98-107); CREATININE, SERUM 0.87 mg/dL (0.72-1.25); EST GLOMERULAR FILTRATION RATE > 60 ML/MIN (60-); GLUCOSE 320 mg/dL (74-118); POTASSIUM 3.9 mmol/L (3.5-5.1); SODIUM 131 mmol/L (136-145)
[2018-03-12 06:18] VITALS: BP 119/61
[2018-03-12] MEDS: NON-FORMULARY MEDICATION (Linagliptin (Tradjenta) 5 MG) PO SCH (09:00)
[2018-03-12 09:11] VITALS: BP 133/78
[2018-03-12] MEDS: FINASTERIDE 5 MG TAB PO SCH (09:19)
[2018-03-12] MEDS: DOCUSATE SODIUM 100 MG CAP PO SCH ×2 (09:19→17:34)
[2018-03-12] MEDS: TAMSULOSIN HCL 0.4 MG CAP PO SCH (09:19)
[2018-03-12] MEDS: PHENAZOPYRIDINE HCL 100 MG TAB PO SCH ×3 (09:19→17:34)
[2018-03-12] MEDS: ATENOLOL 50 MG TAB PO SCH ×2 (09:19→17:35)
[2018-03-12] MEDS: GLIPIZIDE 5 MG TAB PO SCH ×2 (09:19→17:34)
[2018-03-12] MEDS: MEROPENEM 1 GM VIAL IV SCH ×2 (09:19→21:07)
[2018-03-12] MEDS: GEMFIBROZIL 600 MG TAB PO SCH ×2 (09:19→17:34)
[2018-03-12] MEDS: INSULIN LISPRO 100 UNIT/1 ML 3ML VIAL SQ SCH ×4 (09:20→21:08)
[2018-03-12] MEDS: ACETAMINOPHEN/CODEINE 300MG - 30MG TAB PO PRN ×2 (11:27→21:07)
[2018-03-12 12:53] VITALS: BP 118/73
--- NOTE | 2018-03-12 16:55 | Consultation ---
DATE OF CONSULTATION: INFECTIOUS DISEASE CONSULTATION REASON FOR CONSULTATION: Prostatitis. HISTORY OF PRESENT ILLNESS: This is a patient who is very pleasant, well known to me. The patient was diagnosed with UTI and prostatitis with multidrug resistance. He has been on meropenem as an outpatient for the last 6 weeks. He was admitted for a TURP. The patient underwent the procedure really well, has no complaints. He denied any fever or chills. He is currently in the medical floor lying comfortably. He is found at the bedside. PAST MEDICAL HISTORY: This patient has history of enlarged prostate, history of diabetes mellitus, history of obesity, history of hypercholesterolemia, history of hypertension. PAST SURGICAL HISTORY: As above. ALLERGIES: NKA. SOCIAL HISTORY: There is no smoking, drug abuse, alcohol abuse. FAMILY HISTORY: Otherwise unremarkable. REVIEW OF SYSTEMS: HEENT: Negative. PULMONARY: Negative. CARDIAC: Negative. : Negative. SKIN: There is no rash. PHYSICAL EXAMINATION: GENERAL: He is currently alert, oriented, does not seem to be in acute distress. VITALS: Stable. Currently afebrile. HEENT: He does not appear icteric. NECK: Supple. CHEST: Clear. HEART: S1/S2. No S3, no S4. No murmur. ABDOMEN: Soft. Bowel sounds present. No hepatosplenomegaly. EXTREMITIES: No edema. SKIN: No rash. IMPRESSION: Prostatitis. Continue with meropenem for the time-being. Patient clinically seems to be doing well at the present time. Probably can discontinue antibiotic or IV antibiotic upon discharge. Will follow. Job#: [id number] EV
[2018-03-13] VITALS (7 sets, daily range): BP systolic 120–140; BP diastolic 68–85
[2018-03-13 05:48] LABS: BASOPHILS % 0.5 % (0.0-1.0); EOSINOPHILS # (AUTO) 0.2 (0.0-0.4); HEMOGLOBIN 10.1 g/dL (14.0-18.0); LYMPHOCYTES # (AUTO) 1.4 (1.0-3.2); LYMPHOCYTES % 18.3 % (18.0-39.1); MEAN CORPUSCULAR HEMOGLOBIN 27.6 pg (28-32); MEAN CORPUSCULAR HGB CONC 33.7 g/dL (31-35); MONOCYTES # (AUTO) 0.6 (0.2-0.8); MONOCYTES % 8.5 % (4.4-11.3); NEUTROPHILS # (AUTO) 5.2 (2.1-6.9); NEUTROPHILS % 70.4 % (38.7-80.0); PLATELET COUNT 166 x10e3/uL (140-360); RED BLOOD COUNT 3.66 x10e6/uL (4.3-5.7); RED CELL DISTRIBUTION WIDTH 13.2 % (11.7-14.4)
[2018-03-13 06:11] LABS: ANION GAP 11.7 mmol/L (8-16); BLOOD UREA NITROGEN 14 mg/dL (7-26); BUN/CREATININE RATIO 20 (6-25); CALCIUM 7.3 mg/dL (8.4-10.2); CARBON DIOXIDE 21 mmol/L (22-29); CHLORIDE 104 mmol/L (98-107); CREATININE, SERUM 0.71 mg/dL (0.72-1.25); EST GLOMERULAR FILTRATION RATE > 60 ML/MIN (60-); GLUCOSE 132 mg/dL (74-118); POTASSIUM 3.7 mmol/L (3.5-5.1); SODIUM 133 mmol/L (136-145)
[2018-03-13] MEDS: INSULIN LISPRO 100 UNIT/1 ML 3ML VIAL SQ SCH ×4 (07:30→22:08)
[2018-03-13] MEDS: NON-FORMULARY MEDICATION (Linagliptin (Tradjenta) 5 MG) PO SCH (09:00)
[2018-03-13] MEDS: GLIPIZIDE 5 MG TAB PO SCH ×2 (09:00→17:30)
[2018-03-13] MEDS: DOCUSATE SODIUM 100 MG CAP PO SCH ×2 (09:00→17:30)
[2018-03-13] MEDS: SODIUM CHLORIDE 0.45% 1,000 ML IV SCH ×2 (09:00→19:00)
[2018-03-13] MEDS: PHENAZOPYRIDINE HCL 100 MG TAB PO SCH ×3 (09:00→18:05)
[2018-03-13] MEDS: GEMFIBROZIL 600 MG TAB PO SCH ×2 (09:00→17:30)
[2018-03-13] MEDS: TAMSULOSIN HCL 0.4 MG CAP PO SCH (09:00)
[2018-03-13] MEDS: ATENOLOL 50 MG TAB PO SCH ×2 (09:00→17:31)
[2018-03-13] MEDS: MEROPENEM 1 GM VIAL IV SCH ×2 (09:00→22:08)
[2018-03-13] MEDS: FINASTERIDE 5 MG TAB PO SCH (09:00)
[2018-03-13] MEDS: ACETAMINOPHEN/CODEINE 300MG - 30MG TAB PO PRN (13:13)
--- NOTE | 2018-03-13 16:05 | Discharge Summary ---
CONSULTANTS: Dr. Demetrio Escobar and Dr. [place] Delvalle FINAL DIAGNOSES 1. Status post transurethral resection of the prostate. 2. Prostatitis and urinary tract infection, recurrent, secondary to recurrent urinary retention with enlarged prostate. SUMMARY: Patient is a 62-year-old male status post TURP done by Dr. Escobar. The patient is stable. Lab work otherwise unremarkable. Wells catheter removed. The patient is able to urinate. He is comfortable at this time. The patient will go home today with followup with Dr. Escobar. He was discharged home with Levaquin 500 mg daily for 7 days, Colace and Tylenol No. 3 p.r.n. He will resume his home medications. We will ask the patient not to take Plavix for 1 week. The patient is otherwise stable at this time. We will monitor the patient closely. Job#: [id number]
[2018-03-14] VITALS: BP 127/72
[2018-03-14] MEDS: SODIUM CHLORIDE 0.45% 1,000 ML IV SCH (01:19)
[2018-03-14 04:00] VITALS: BP 128/65
[2018-03-14 04:40] VITALS: BP 127/72
[2018-03-14 07:07] LABS: BASOPHILS % 0.5 % (0.0-1.0); EOSINOPHILS # (AUTO) 0.3 (0.0-0.4); EOSINOPHILS % 3.4 % (0.0-6.0); HEMATOCRIT 31.5 % (38.2-49.6); HEMOGLOBIN 10.5 g/dL (14.0-18.0); LYMPHOCYTES # (AUTO) 1.5 (1.0-3.2); MEAN CORPUSCULAR HEMOGLOBIN 27.1 pg (28-32); MEAN CORPUSCULAR HGB CONC 33.3 g/dL (31-35); MEAN CORPUSCULAR VOLUME 81.2 fL (81-99); MONOCYTES # (AUTO) 0.7 (0.2-0.8); MONOCYTES % 8.4 % (4.4-11.3); NEUTROPHILS # (AUTO) 5.7 (2.1-6.9); NEUTROPHILS % 69.3 % (38.7-80.0); PLATELET COUNT 187 x10e3/uL (140-360); RED BLOOD COUNT 3.88 x10e6/uL (4.3-5.7); RED CELL DISTRIBUTION WIDTH 13.2 % (11.7-14.4)
[2018-03-14 07:23] LABS: ANION GAP 12.5 mmol/L (8-16); BLOOD UREA NITROGEN 16 mg/dL (7-26); BUN/CREATININE RATIO 22 (6-25); CALCIUM 7.7 mg/dL (8.4-10.2); CARBON DIOXIDE 21 mmol/L (22-29); CHLORIDE 102 mmol/L (98-107); CREATININE, SERUM 0.73 mg/dL (0.72-1.25); EST GLOMERULAR FILTRATION RATE > 60 ML/MIN (60-); GLUCOSE 114 mg/dL (74-118); POTASSIUM 3.5 mmol/L (3.5-5.1); SODIUM 132 mmol/L (136-145)
[2018-03-14 08:38] VITALS: BP 157/85
[2018-03-14] MEDS: INSULIN LISPRO 100 UNIT/1 ML 3ML VIAL SQ SCH (08:38)
[2018-03-14] MEDS: MEROPENEM 1 GM VIAL IV SCH (08:38)
[2018-03-14] MEDS: TAMSULOSIN HCL 0.4 MG CAP PO SCH (08:38)
[2018-03-14] MEDS: ATENOLOL 50 MG TAB PO SCH (08:38)
[2018-03-14] MEDS: GEMFIBROZIL 600 MG TAB PO SCH (08:38)
[2018-03-14] MEDS: GLIPIZIDE 5 MG TAB PO SCH (08:38)
[2018-03-14] MEDS: FINASTERIDE 5 MG TAB PO SCH (08:38)
[2018-03-14] MEDS: DOCUSATE SODIUM 100 MG CAP PO SCH (08:38)
[2018-03-14] MEDS: PHENAZOPYRIDINE HCL 100 MG TAB PO SCH (08:38)
[2018-03-14] MEDS: NON-FORMULARY MEDICATION (Linagliptin (Tradjenta) 5 MG) PO SCH (09:00)
[2018-03-14 09:36] VITALS: BP 157/85
[2018-03-14] MEDS ORDERED: POTASSIUM CHLORIDE 10MEQ EA PO NR (10:15)
[2018-03-14 13:18] VITALS: BP 143/68
[2018-03-14] MEDS ORDERED: TYLENOL WITH C1 EACH PO (13:34)
[2018-03-14] MEDS ORDERED: COLACE100 MG PO (13:35)
[2018-03-14] MEDS ORDERED: LEVAQUIN500 MG PO (13:35)
[2018-03-14] MEDS ORDERED: INFLUENZA VIRUS VAC SPLIT INJ 0.5 ML SYR IM ONE (14:30)
== END 2018-03-14 14:20 | disposition home or self-care (01) | DRG 713 ==
LOC: OR 05:34 → PACU V 11:10 → MED/SURG 14:21
PROVIDERS: ADMIT Urology; ATTEND Urology
PROC: BT141ZZ Fluoroscopy of Kidneys, Ureters and Bladder using Low Osmolar Contrast (ICD-10-PCS; 2018-03-11)
PROC: 0V508ZZ Destruction of Prostate, Via Natural or Artificial Opening Endoscopic (ICD-10-PCS; principal; 2018-03-11 07:54)
PROC: 3E02340 Introduction of Influenza Vaccine into Muscle, Percutaneous Approach (ICD-10-PCS; 2018-03-14)
DX: N40.1 Benign prostatic hyperplasia with lower urinary tract symptoms (principal); N13.8 Other obstructive and reflux uropathy; Z87.440 Personal history of urinary (tract) infections; R33.9 Retention of urine, unspecified; E11.9 Type 2 diabetes mellitus without complications; E66.9 Obesity, unspecified; Z68.31 Body mass index [BMI] 31.0-31.9, adult; E78.00 Pure hypercholesterolemia, unspecified; I10 Essential (primary) hypertension; I25.10 Atherosclerotic heart disease of native coronary artery without angina pectoris; Z95.5 Presence of coronary angioplasty implant and graft; Z79.84 Long term (current) use of oral hypoglycemic drugs; Z23 Encounter for immunization
CPT/HCPCS: 36415; 51700; 74420; 80048; 82948; 83735; 85025; 88305; 93005; 96372; J0696; J1100; J1200; J1580; J2001; J2185; J2250; J2405

== ENCOUNTER 2018-03-16 14:51 | Inpatient (IN) | payer OTHER ==
[~2018-03-16] VITALS: Ht 157.5 cm; Wt 76.4 kg
[~2018-03-16 14:51] MED LIST changes: +COLACE100 MG PO; +TYLENOL WITH C1 EACH PO
[2018-03-16 16:15] LABS: BASOPHILS % 0.5 % (0.0-1.0); EOSINOPHILS # (AUTO) 0.3 (0.0-0.4); EOSINOPHILS % 3.1 % (0.0-6.0); HEMATOCRIT 38.5 % (38.2-49.6); LYMPHOCYTES # (AUTO) 0.6 (1.0-3.2); LYMPHOCYTES % 6.5 % (18.0-39.1); MEAN CORPUSCULAR HEMOGLOBIN 27.1 pg (28-32); MEAN CORPUSCULAR HGB CONC 33.8 g/dL (31-35); MEAN CORPUSCULAR VOLUME 80.4 fL (81-99); MONOCYTES # (AUTO) 0.5 (0.2-0.8); MONOCYTES % 5.8 % (4.4-11.3); NEUTROPHILS # (AUTO) 7.2 (2.1-6.9); NEUTROPHILS % 83.6 % (38.7-80.0); PLATELET COUNT 278 x10e3/uL (140-360); RED BLOOD COUNT 4.79 x10e6/uL (4.3-5.7); RED CELL DISTRIBUTION WIDTH 13.2 % (11.7-14.4)
[2018-03-16 16:30] LABS: ALANINE AMINOTRANSFERASE 25 IU/L (0-55); ALBUMIN 3.8 g/dL (3.5-5.0); ALBUMIN/GLOBULIN RATIO 0.8 (0.8-2.0); ALKALINE PHOSPHATASE 73 IU/L (40-150); ANION GAP 19.2 mmol/L (8-16); BLOOD UREA NITROGEN 26 mg/dL (7-26); BUN/CREATININE RATIO 22 (6-25); CALCIUM 9.7 mg/dL (8.4-10.2); CARBON DIOXIDE 22 mmol/L (22-29); CHLORIDE 101 mmol/L (98-107); CREATININE, SERUM 1.17 mg/dL (0.72-1.25); EST GLOMERULAR FILTRATION RATE > 60 ML/MIN (60-); GLUCOSE 213 mg/dL (74-118); POTASSIUM 4.2 mmol/L (3.5-5.1); SODIUM 138 mmol/L (136-145)
[2018-03-16 16:43] LABS: BILIRUBIN,URINE NEGATIVE (NEGATIVE); CLARITY,URINE SL CLOUDY (CLEAR); COLOR,URINE AMBER (YELLOW); KETONES,URINE NEGATIVE (NEGATIVE); LEUKOCYTE ESTERASE ,URINE TRACE (NEGATIVE); NITRITE,URINE NEGATIVE (NEGATIVE); PROTEIN,URINE DIPSTICK 2+ (NEGATIVE); URINE UROBILINOGEN 0.2 mg/dL (0.2 - 1)
[2018-03-16 17:08] LABS: WBC,URINE (MAN) 21-50 /HPF (0-5)
[2018-03-16 17:09] LABS: BACTERIA,URINE MODERATE /HPF; EPITHELIAL CELLS,URINE FEW /LPF; MUCUS,URINE MODERATE (RARE); RBC,URINE >50 /HPF (0-5)
[2018-03-16] MEDS ORDERED: ONDANSETRON HCL INJ 2 MG/ML VIAL IV ONE (17:21)
[2018-03-16] MEDS ORDERED: SODIUM CHLORIDE 0.9% 1000ML 1,000 ML IV STA (17:21)
[2018-03-16] MEDS ORDERED: MEROPENEM 1GM 100 ML IV SCH (17:30)
[2018-03-16] MEDS ORDERED: MEROPENEM 1 GM VIAL IV SCH (17:30)
[2018-03-16 18:16] LABS: AMYLASE 86 U/L (25-125); LIPASE 56 U/L (8-78)
[2018-03-16] MEDS ORDERED: MEROPENEM 1GRAM 1 GM in SODIUM CHLORIDE 0.9% 100 ML 100 ML IV SCH (18:45)
[2018-03-16] MEDS ORDERED: MORPHINE SULFATE 2 MG/ML SYR IV PRN (19:00)
[2018-03-16] MEDS ORDERED: ONDANSETRON HCL INJ 2 MG/ML VIAL IV PRN (19:00)
[2018-03-16] MEDS ORDERED: DEXTROSE 50% SYRINGE 50 ML IV PRN (19:00)
[2018-03-16 19:16] LABS: CREATINE KINASE 63 IU/L (30-200)
[2018-03-16] MEDS ORDERED: SODIUM CHLORIDE 0.9% 100 ML ONE ×2 (19:25→19:45)
[2018-03-16] MEDS: MEROPENEM 1 GM VIAL IV SCH (19:38)
[2018-03-16] MEDS: INSULIN LISPRO 100 UNIT/1 ML 3ML VIAL SQ SCH (20:07)
[2018-03-16 21:30] VITALS: BP 134/74
[2018-03-16 21:45] VITALS: BP 134/74
[2018-03-16] MEDS: SODIUM CHLORIDE 0.9% 1000ML 1,000 ML IV SCH (22:23)
[2018-03-17] VITALS (8 sets, daily range): BP systolic 116–153; BP diastolic 60–85
[2018-03-17 01:10] LABS: CREATINE KINASE 53 IU/L (30-200)
[2018-03-17] MEDS: MEROPENEM 1 GM VIAL IV SCH ×3 (03:07→21:24)
[2018-03-17 04:53] LABS: BASOPHILS % 0.4 % (0.0-1.0); EOSINOPHILS # (AUTO) 0.3 (0.0-0.4); EOSINOPHILS % 5.5 % (0.0-6.0); HEMATOCRIT 32.3 % (38.2-49.6); HEMOGLOBIN 10.6 g/dL (14.0-18.0); LYMPHOCYTES # (AUTO) 0.5 (1.0-3.2); LYMPHOCYTES % 10.5 % (18.0-39.1); MEAN CORPUSCULAR HEMOGLOBIN 26.6 pg (28-32); MEAN CORPUSCULAR HGB CONC 32.8 g/dL (31-35); MONOCYTES # (AUTO) 0.4 (0.2-0.8); MONOCYTES % 8.6 % (4.4-11.3); NEUTROPHILS # (AUTO) 3.8 (2.1-6.9); NEUTROPHILS % 74.6 % (38.7-80.0); PLATELET COUNT 210 x10e3/uL (140-360); RED BLOOD COUNT 3.99 x10e6/uL (4.3-5.7); RED CELL DISTRIBUTION WIDTH 13.1 % (11.7-14.4)
[2018-03-17] MEDS: SODIUM CHLORIDE 0.9% 1000ML 1,000 ML IV SCH ×2 (04:55→16:51)
[2018-03-17 05:16] LABS: ALANINE AMINOTRANSFERASE 22 IU/L (0-55); ALBUMIN/GLOBULIN RATIO 0.8 (0.8-2.0); ALKALINE PHOSPHATASE 64 IU/L (40-150); ANION GAP 12.1 mmol/L (8-16); BLOOD UREA NITROGEN 22 mg/dL (7-26); BUN/CREATININE RATIO 22 (6-25); CALCIUM 8.6 mg/dL (8.4-10.2); CARBON DIOXIDE 24 mmol/L (22-29); CHLORIDE 104 mmol/L (98-107); CREATININE, SERUM 0.98 mg/dL (0.72-1.25); EST GLOMERULAR FILTRATION RATE > 60 ML/MIN (60-); GLUCOSE 205 mg/dL (74-118); POTASSIUM 4.1 mmol/L (3.5-5.1); SODIUM 136 mmol/L (136-145)
[2018-03-17 08:31] LABS: BAND NEUTROPHILS % (MANUAL) 3 %; EOSINOPHILS % (MANUAL) 3 % (0-7); LYMPHOCYTES % (MANUAL) 10 % (19-48); MONOCYTES % (MANUAL) 3 % (3.4-9.0); NEUTROPHILS % (MANUAL) 81 % (40-74)
[2018-03-17 08:32] LABS: PLATELET ESTIMATE ADEQUATE; PLATELET MORPHOLOGY COMMENT NORMAL
[2018-03-17 09:20] LABS: CREATINE KINASE 51 IU/L (30-200)
--- NOTE | 2018-03-17 10:06 | History and Physical ---
CHIEF COMPLAINT: Complicated urinary tract infection, gross hematuria, fever, nausea, and vomiting. HISTORY: Patient is a 62-year-old male recently admitted after a TURP. The patient was discharged on March 13, 2018, with Levaquin for 7 days. The patient was at home when he developed fever, nausea and vomiting. The patient called out to Dr. Delvalle and Dr. Escobar, and was told to come back into the hospital. Patient is doing a little better today. He did have a fever on vital signs in the emergency room. The patient is stable. He had a urinalysis showing that she has significant 4+ blood, greater than 50 rbcs and 21-50 wbcs with moderate bacteria. The patient is otherwise stable at this time. PAST MEDICAL HISTORY: Enlarged prostate, status post TURP, diabetes, type 2, dyslipidemia, and hypertension. PAST SURGICAL HISTORY: Status post TURP. SOCIAL HISTORY: Patient does not smoke or use alcohol. No recreational drugs. ALLERGIES: NO KNOWN ALLERGIES. HOME MEDICATIONS: List reviewed. REVIEW OF SYSTEMS: As mentioned above. PHYSICAL EXAMINATION VITAL SIGNS: Temperature is 99, blood pressure 129/80, pulse rate 83, respirations 18. GENERAL: The patient is not in acute distress. He is awake. HEENT: Normocephalic, atraumatic and anicteric. NECK: Supple grossly. PULMONARY: Clear. CARDIOVASCULAR: Regular rate and rhythm. ABDOMEN: Soft and unremarkable. EXTREMITIES: No cyanosis or edema. NEUROLOGICAL: No gross focal deficit. LABORATORY: Sodium is 136, potassium 4.1, chloride 104, bicarb 24, BUN 22, creatinine 0.9, glucose 205. WBC 5.1, hemoglobin 10.6, hematocrit 32.3, and platelets are 210,000. IMPRESSION 1. Complicated urinary tract infection with status post transurethral resection of prostate procedure. 2. Prostatitis. 3. Fever, nausea and vomiting. PLAN: Continue with meropenem for now. Consultation with Dr. Delvalle. Will continue to monitor urine culture. Will follow up on this patient. Job#: [id number] KEVEN
[2018-03-17] MEDS: INSULIN LISPRO 100 UNIT/1 ML 3ML VIAL SQ SCH ×4 (10:44→21:00)
--- NOTE | 2018-03-17 15:35 | Consultation ---
DATE OF CONSULTATION: REASON FOR CONSULTATION: Fever and chills. HISTORY OF PRESENT ILLNESS: This patient is well known to me, a 62-year-old male. The patient has a history of prostatitis. He received 6 weeks of meropenem. The patient did do well. The patient was discharged home off antibiotic. He also had a TURP. The patient is currently lying in bed comfortably. His daughter called me yesterday saying that he has been having fever and chills. The patient was asked to come to the hospital. She is telling me now that he has also been having a problem with nausea and has some abdominal pain. The patient is being admitted and started on IV fluids. He is currently lying in bed comfortably. REVIEW OF SYSTEMS: At the present time: HEENT: Negative. PULMONARY: Negative. CARDIAC: Negative. : Negative. GI: Negative. GENERAL: He says he is feeling better since he came here. OTHER: All other systems are within normal limits. PHYSICAL EXAMINATION GENERAL: He is currently alert and oriented, does not seem to be in acute distress. VITALS: Stable, currently afebrile. HEENT: Not icteric. Normocephalic. NECK: Supple. No JVD. No lymphadenopathy. No thyromegaly. CHEST: Clear bilaterally. HEART: S1 and S2. No S3, S4 or murmur. ABDOMEN: Soft. Bowel sounds present. No tenderness. No hepatosplenomegaly. EXTREMITIES: No edema. SKIN: There is no rash. Review of systems is all negative at the present time. Laboratory data reviewed. Chart reviewed. Laboratory data: White count is 5.2. Hemoglobin 10.6, hematocrit 32. Sodium 136, potassium 4.1, glucose 205. IMPRESSION 1. Chills and fever at the house, not since admission. Nausea, vomiting and some abdominal discomfort, resolved now. It could be gastroenteritis. However, the possibility of bacterial infection such as Clostridium difficile, etc., or history of bacteremia will need to be ruled out. Agree with blood cultures. Currently on meropenem. Will reassess in the morning. If blood cultures are negative, patient can be discharged home without antibiotic. Will follow with you. 2. History of hypertension. 3. History of diabetes. 4. History of hyperlipidemia. Thank you for asking me to see this patient. Job#: [id number]
[2018-03-18] VITALS: BP 140/74
[2018-03-18] MEDS: SODIUM CHLORIDE 0.9% 1000ML 1,000 ML IV SCH (00:55)
[2018-03-18 04:00] VITALS: BP 140/70
[2018-03-18 04:35] LABS: BASOPHILS % 0.5 % (0.0-1.0); EOSINOPHILS # (AUTO) 0.3 (0.0-0.4); EOSINOPHILS % 6.3 % (0.0-6.0); HEMATOCRIT 30.7 % (38.2-49.6); HEMOGLOBIN 10.4 g/dL (14.0-18.0); LYMPHOCYTES % 22.7 % (18.0-39.1); MEAN CORPUSCULAR HEMOGLOBIN 27.5 pg (28-32); MEAN CORPUSCULAR HGB CONC 33.9 g/dL (31-35); MEAN CORPUSCULAR VOLUME 81.2 fL (81-99); MONOCYTES # (AUTO) 0.5 (0.2-0.8); MONOCYTES % 12.3 % (4.4-11.3); NEUTROPHILS # (AUTO) 2.5 (2.1-6.9); NEUTROPHILS % 57.5 % (38.7-80.0); PLATELET COUNT 222 x10e3/uL (140-360); RED BLOOD COUNT 3.78 x10e6/uL (4.3-5.7); RED CELL DISTRIBUTION WIDTH 13.2 % (11.7-14.4)
[2018-03-18 04:58] LABS: ANION GAP 9.8 mmol/L (8-16); BLOOD UREA NITROGEN 15 mg/dL (7-26); BUN/CREATININE RATIO 17 (6-25); CALCIUM 8.5 mg/dL (8.4-10.2); CARBON DIOXIDE 25 mmol/L (22-29); CHLORIDE 104 mmol/L (98-107); CREATININE, SERUM 0.89 mg/dL (0.72-1.25); EST GLOMERULAR FILTRATION RATE > 60 ML/MIN (60-); GLUCOSE 169 mg/dL (74-118); POTASSIUM 3.8 mmol/L (3.5-5.1); SODIUM 135 mmol/L (136-145)
[2018-03-18] MEDS: MEROPENEM 1 GM VIAL IV SCH ×2 (05:30→10:28)
[2018-03-18] MEDS: INSULIN LISPRO 100 UNIT/1 ML 3ML VIAL SQ SCH ×2 (07:30→12:37)
[2018-03-18 07:54] VITALS: BP 137/78
[2018-03-18 08:05] VITALS: BP 137/78
[2018-03-18] MEDS ORDERED: ACETAMINOPHEN/CODEINE 300MG - 30MG TAB PO PRN (09:30)
[2018-03-18 12:15] VITALS: BP 133/80
[2018-03-18] MEDS ORDERED: METFORMIN HCL 500 MG TAB PO SCH (17:00)
[2018-03-18] MEDS ORDERED: GLIPIZIDE 5 MG TAB PO SCH (17:00)
[2018-03-18] MEDS ORDERED: GEMFIBROZIL 600 MG TAB PO SCH (17:00)
[2018-03-18] MEDS ORDERED: ATENOLOL 50 MG TAB PO SCH (17:00)
[2018-03-18] MEDS ORDERED: DOCUSATE SODIUM 100 MG CAP PO SCH (17:00)
[2018-03-19] MEDS ORDERED: NON-FORMULARY MEDICATION (Linagliptin (Tradjenta) 5 MG) PO SCH ×2 (09:00)
[2018-03-19] MEDS ORDERED: FINASTERIDE 5 MG TAB PO SCH (09:00)
[2018-03-19] MEDS ORDERED: TAMSULOSIN HCL 0.4 MG CAP PO SCH (09:00)
== END 2018-03-18 13:35 | disposition home or self-care (01) | DRG 690 ==
LOC: ER 14:51 → ERHOLD 19:03 → OBSVTOIN 19:03 → IMCU 20:46 → MED/SURG 21:14 → MED/SURG2 21:23
PROVIDERS: ADMIT Internal Medicine; ATTEND Internal Medicine
DX: N39.0 Urinary tract infection, site not specified (principal); I10 Essential (primary) hypertension; E11.9 Type 2 diabetes mellitus without complications; E78.5 Hyperlipidemia, unspecified; N41.9 Inflammatory disease of prostate, unspecified
CPT/HCPCS: 36415; 80048; 80053; 81001; 82150; 82550; 82553; 82948; 83605; 83690; 84484; 85025; 87040; 87086; 99284; J2185; J2270; J2405; J7030; J7050